=== PATIENT | female | born 1970 | race Two or more races ===

== ENCOUNTER 2023-04-21 18:31 | Emergency (ER) | payer SELFPAY ==
[~2023-04-21] VITALS: Ht 160 cm; Wt 78.6 kg
[2023-04-21 18:32] VITALS: BP 149/81
[2023-04-21] MEDS ORDERED: CEPH-558 PO (19:18)
== END 2023-04-21 19:31 | disposition home or self-care (01) ==
LOC: EMS 18:33
DX: L03.032 Cellulitis of left toe (principal)
CPT/HCPCS: 99283; Z7502